=== PATIENT | female | born 1980 | race Caucasian/White ===

== ENCOUNTER 2022-12-12 15:15 | Emergency (ER) | payer BC, SELFPAY ==
[2022-12-12 15:28] VITALS: BP 113/78; PULSE 88; RESP 16; TEMP 36.4; O2SAT 97
[2022-12-12 16:05] VITALS: BP 105/73; PULSE 81; RESP 16; O2SAT 97
--- NOTE | 2022-12-12 16:14 | XRR_ITS ---
PROCEDURE INFORMATION: Exam: XR Right Foot Exam date and time: 12/12/2022 4:20 PM Age: 41 years old Clinical indication: Pain and injury or trauma; Other: Not specified; Blunt trauma; Foot; Right; Additional info: Pain/injury TECHNIQUE: Imaging protocol: Radiologic exam of the right foot. Views: 3 or more views. COMPARISON: No relevant prior studies available. FINDINGS: Bones/joints: Normal. Soft tissues: Normal. XR/XR foot RT min 3V* [id number] IMPRESSION: No acute findings.
--- NOTE | 2022-12-12 16:15 | W.ED.LOWEXIN ---
HPI - Extremity Injury (Lower) General: Chief Complaint: Extremity Injury, Lower Stated Complaint: right ankle/foot pain Time Seen by Provider: 12/12/22 16:09 Source: patient Mode of arrival: ambulatory Limitations: no limitations History of Present Illness: Patient is a nice 41-year-old female approximately 34 weeks here for concerns of a right foot injury that she sustained earlier today when she believes she rolled the extremity. Patient states she has pain with weightbearing but no pain at rest. She has not noticed any swelling or deformities present. MD complaint: foot injury Onset (ago): hour(s) Injury: Right: foot Place: home Severity: mild Relieving factors: immobilization Exacerbating factors: weight bearing Associated symptoms: Reports no associated symptoms Other symptoms: none Review of Systems Musc: Reports: extremity pain (R foot); Denies: extremity swelling, joint pain, joint swelling, joint redness or joint warmth Neuro: Denies: numbness in extremities or sensory changes Physical Exam Const: COMMON NORMALS: no acute distress, average body habitus, patient oriented x3, no limitations, healthy appearing, alert and well nourished Extremity: COMMON NORMALS: normal to inspection, full ROM, capillary refill normal, no joint enlargement, no clubbing, cyanosis or edema, no calf tenderness and no pedal edema GENERAL: Yes normal exam except as noted RIGHT LOWER EXTREMITY: Yes foot & digits Right foot and digits: Yes inspection (normal), Yes palpation (TTP dorsal medial foot) and Yes neurovascular exam (normal) Neuro: COMMON NORMALS: patient oriented x3, moves all extremities, no focal motor deficits, no sensory deficits noted and gait normal SENSORIUM/ORIENTATION: Yes alert Course Vital Signs: Vital signs: Vital Signs Temperature 97.6 F 12/12/22 15:28 Pulse Rate 81 12/12/22 16:05 Respiratory Rate 16 12/12/22 16:05 Blood Pressure 105/73 12/12/22 16:05 Pulse Oximetry 97 12/12/22 16:05 Oxygen Delivery Me thod Room Air 12/12/22 16:05 MDM - Extremity Injury (Lower) Medical Decision Making XR negative. Recommend DUNG wrap, ice, elevation, weightbearing as tolerated. Patient states she would not like crutches as she is 34 weeks and thinks this would probably increase her risk of falling. Recommend follow up with PCP in 1-2 weeks if no improvement. Lab Data Radiology Impressions Foot X-Ray 12/12/22 16:14 IMPRESSION: No acute findings. 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
== END 2022-12-12 16:59 | disposition home or self-care (01) ==
PROVIDERS: Emergency Provider Physician Assistant; PCP Nurse Practitioner Family
DX: O9A.213 Injury, poisoning and certain other consequences of external causes complicating pregnancy, third trimester (principal); S93.601A Unspecified sprain of right foot, initial encounter; Z3A.34 34 weeks gestation of pregnancy; X50.1XXA Overexertion from prolonged static or awkward postures, initial encounter
CPT/HCPCS: 73630; 99283